=== PATIENT | female | born 1945 | race Two or more races ===

== ENCOUNTER 2017-03-11 13:44 | Outpatient (CLI) | payer OTHER | END 2017-03-11 13:53 | disposition home or self-care (01) | LOC: RAD 13:44 | DX: J98.4 Other disorders of lung (principal) ==

== ENCOUNTER 2017-03-19 10:58 | Outpatient (CLI) | payer OTHER | END 2017-03-19 11:02 | disposition home or self-care (01) | LOC: RAD 10:58 | DX: M54.5 Low back pain (principal) ==

== ENCOUNTER 2020-05-08 07:13 | Outpatient (CLI) | payer OTHER | END 2020-05-08 07:23 | disposition home or self-care (01) | LOC: RAD 07:13 → RX STUDY 09:00 | PROVIDERS: ATTEND Specialist | DX: K21.9 Gastro-esophageal reflux disease without esophagitis (principal); I70.0 Atherosclerosis of aorta; R13.12 Dysphagia, oropharyngeal phase; M85.80 Other specified disorders of bone density and structure, unspecified site ==

== ENCOUNTER → 2022-02-03 | Outpatient (CLI) | payer OTHER | END | disposition home or self-care (01) | LOC: RAD 09:17 | PROVIDERS: ATTEND Internal Medicine Hematology & Oncology | DX: M80.08XA Age-related osteoporosis with current pathological fracture, vertebra(e), initial encounter for fracture (principal); M05.9 Rheumatoid arthritis with rheumatoid factor, unspecified; D63.8 Anemia in other chronic diseases classified elsewhere ==